=== PATIENT | male | born 1995 | race Caucasian/White ===

== ENCOUNTER 2020-01-24 11:53 | Emergency (ER) | payer OTHER, SELFPAY ==
[2020-01-24 11:54] VITALS: BP 112/89; PULSE 84; RESP 16; TEMP 36.6; O2SAT 99; BMI 21.5
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
--- NOTE | 2020-01-24 14:04 | RAD_ITS ---
STUDY: X-RAY - LEFT WRIST REASON FOR EXAM: Male, 24 years old. PAIN AND SWELLING IN LEFT WRIST TECHNIQUE: 3 view(s) of the wrist were obtained. COMPARISON: None. FINDINGS: Normal visualized distal radius and ulna. Normal radiocarpal articulation. Normal distal radioulnar articulation. Normal carpal bones. Normal carpal articulations. Normal carpometacarpal articulation of the thumb. Normal second through fifth carpometacarpal articulations. Normal visualized metacarpal bones. The soft tissue structures are unremarkable. RAD/Wrist min 3 Views IMPRESSION: Normal x-ray examination of the wrist. Electronically Signed: Freddy Landrum, at 14:48 EST Tel , Service support ,
[2020-01-24] MEDS: Ibuprofen 600 MG Tablet PO (14:20)
[2020-01-24 14:53] VITALS: BP 122/62; PULSE 68; RESP 16; O2SAT 98
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
[2020-01-24 14:59] VITALS: BP 122/62; PULSE 68; O2SAT 98
== END 2020-01-24 15:40 | disposition home or self-care (01) ==
PROVIDERS: Emergency Provider Emergency Medicine
DX: S09.90XA Unspecified injury of head, initial encounter (principal); S60.212A Contusion of left wrist, initial encounter; S30.22XA Contusion of scrotum and testes, initial encounter; Y04.2XXA Assault by strike against or bumped into by another person, initial encounter; Y93.89 Activity, other specified; Y92.199 Unspecified place in other specified residential institution as the place of occurrence of the external cause; Y99.0 Civilian activity done for income or pay
CPT/HCPCS: 73110; 76870; 93976; 99283; 99285

== ENCOUNTER → 2021-08-27 12:17 | Outpatient (CLI) | payer OTHER, SELFPAY ==
--- NOTE | 2021-08-27 12:20 | US_ITS ---
STUDY: SCROTUM ULTRASOUND REASON FOR EXAM: Male, 26 years old. Bilateral testicular pain. TECHNIQUE: Ultrasound evaluation of the scrotum was performed with color Doppler and static carter-scale imaging. COMPARISON: None. FINDINGS: RIGHT TESTICLE INTRATESTICULAR: There is a normal size of the right testicle. The right testicle measures 4.4 cm x 2.9 cm x 2 cm. There is a homogenous echotexture. There is normal arterial and normal venous vascularity. There is no demonstrated right testicular mass or cyst. EXTRATESTICULAR: The epididymis is normal in size. The epididymis head measures 1 cm x 1.4 cm x 0.9 cm. There is normal vascularity of the epididymis. There is no demonstrated epididymal cystic structure. There is no demonstrated hydrocele. There is no demonstrated varicocele. There is no demonstrated extratesticular mass or cyst. LEFT TESTICLE INTRATESTICULAR: There is a normal size of the left testicle. The left testicle measures 4.5 cm x 2.5 cm x 1.9 cm. There is a homogenous echotexture. There is normal arterial and normal venous vascularity. There is no demonstrated left testicular mass or cyst. EXTRATESTICULAR: The epididymis is normal in size. The epididymis head measures 1 cm x 1.5 cm x 0.9 cm. There is normal vascularity of the epididymis. There is no demonstrated epididymal cystic structure. There is no demonstrated hydrocele. There is no demonstrated varicocele. There is no demonstrated extratesticular mass or cyst. US/Testicular with Arterial Flow IMPRESSION: Normal bilateral testicles. Electronically Signed: Rishi Mccann MD at 9:34 EDT , Service support ,
== END ==
DX: N50.811 Right testicular pain (principal); N50.812 Left testicular pain
CPT/HCPCS: 76870; 93976